=== PATIENT | male | born 1985 | race Caucasian/White ===

== ENCOUNTER 2020-09-16 10:19 | Emergency (ER) | payer OTHER, SELFPAY ==
--- NOTE | ~2020-09-16 | CT_ITS ---
EXAMINATION: CT abdomen pelvis w con DATE: 09/16/2020 11:50 INDICATION: Abdominal pain TECHNIQUE: Computed tomography (CT) of the abdomen and pelvis was performed with 100 mL Omnipaque-350 intravenous contrast. Automated exposure control and iterative reconstruction technique were employe d. The dose-length product was 594.59 mGy-cm. COMPARISON: None FINDINGS: There are scattered nodular and patchy groundglass opacities in the bilateral lower lobes consistent with pneumonia. Heart size is normal. No pericardial or pleural effusion. Liver, gallbladder, spleen, pancreas, bilateral adrenal glands are normal. Bilateral nonobstructing nephrolithiasis with [address] one at a lower pole calyx of the right kidney and with 2 mm and 3 mm stones in the upper pole of the left kidney. There are few scattered colonic diverticula without adjacent inflammatory change to sugg est diverticulitis. Small bowel and appendix are normal. Bladder is normal. No free intraperitoneal g as or fluid. No pathologically enlarged abdominal or pelvic lymphadenopathy. Tiny fat-containing umbi lical hernia. Minimal thoracolumbar levocurvature with mild lower lumbar spondylosis. IMPRESSION: 1. Multifocal pneumonia at the bilateral lung bases. 2. Bilateral nonobstructing nephrolithiasis. Reviewed, dictated and finalized at location A. OBGYN
--- NOTE | ~2020-09-16 | XR_ITS ---
EXAMINATION: XR chest 1V portable DATE: 09/16/2020 12:28 INDICATION: Cough. TECHNIQUE: A single frontal view of the chest was obtained. COMPARISON: CT abdomen and pelvis 09/16/2020 FINDINGS: There are mild patchy airspace opacities in all lung zones bilaterally, consistent with pne umonia. No pleural effusion or pneumothorax. The heart size is normal. IMPRESSION: 1. Multifocal pneumonia. Reviewed, dictated and finalized at location B. 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 Multifocal pneumonia.
[2020-09-16 10:28] VITALS: BP 108/62; PULSE 71; RESP 17; TEMP 36.1; O2SAT 98
[2020-09-16 10:51] LABS: Basophils Percent Auto 0.2 % (0.2-1.2); Hematocrit 43.4 % (42.0-52.0); Hemoglobin 15.1 g/dL (14.0-18.0); Immature Granulocyte Absolute 0.02 K/mm3 (0.00-0.031); Immature Granulocyte Percent A 0.4 % (0-0.5); Lymphocytes Absolute Auto 1.17 K/mm3 (0.9-3.2); Lymphocytes Percent Auto 23.4 % (18.3-44.2); Mean Corpuscular HGB Conc 34.8 g/dl (32-36); Mean Corpuscular Hemoglobin 31.4 pg (26-34); Mean Corpuscular Volume 90.2 fl (80-100); Mean Platelet Volume 9.4 fl (7.4-10.4); Monocytes Absolute Auto 0.4 K/mm3 (0.1-0.6); Monocytes Percent Auto 7.4 % (2.6-8.5); Neutrophils Absolute Auto 3.4 K/mm3 (1.3-6.7); Neutrophils Percent Auto 68.6 % (45.5-73.1); Platelet Count Result 245 k/mm3 (150-375); Red Blood Count 4.81 M/mm3 (4.6-6.20); Red Cell Distribution Width 11.4 % (11.5-14.5)
[2020-09-16 11:09] LABS: Anion Gap 9 mmol/L (8-16); Blood Urea Nitrogen 14 mg/dL (9-20); Calcium 9.4 mg/dL (8.4-10.2); Carbon Dioxide 31 mmol/L (22-30); Chloride 101 mmol/L (98-107); Estimated CRCL calculation 162 ml/min; Estimated Glomerular Filt Rate > 60; Glucose 122 mg/dL (75-110); Sodium 141 mmol/L (137-145)
[2020-09-16 11:10] LABS: Add Urine Microscopic? YES; Appearance Urine Clear (Clear); Bacteria Urine Trace /hpf; Bilirubin Urine Negative (Negative); Blood Urine 1+ (Negative); Color Urine Yellow (Yellow); Glucose Urine UA Negative (Negative); Ketones Urine Negative (Negative); Leukocyte Esterase Ur Negative LEU/UL (Negative); Mucus Urine Heavy /lpf; Nitrate Urine Negative (Negative); Protein Urine 1+ mg/dL (Negative); Specific Grav Ur 1.025 (1.001-1.035); Squamous Epithelial Cell Urine Rare /hpf (Few); Urobilinogen Urine Negative mg/dL (<2.0); WBC Urine 0-3 /hpf
[2020-09-16 11:25] VITALS: BP 121/94; PULSE 64; RESP 20; O2SAT 97
[2020-09-16 11:46] LABS: Albumin Level 4.5 g/dL (3.5-5.1)
[2020-09-16 11:48] LABS: Alanine Aminotransferase 34 U/L (4-50); Alkaline Phosphatase 91 U/L (38-126); Aspartate Amino Transferase 43 U/L (17-59); Bilirubin,Total 0.8 mg/dL (0.2-1.3); Lipase 59 U/L (23-300)
[2020-09-16] MEDS: SODIUM CHLORIDE 0.9% IV 1,000 ML 999 ML IV CONT (11:49)
[2020-09-16] MEDS: ONDANSETRON INJ 4 MG/2 ML VIAL IV PUSH (11:49)
[2020-09-16 13:05] VITALS: BP 103/68; PULSE 73; RESP 20; O2SAT 99
--- NOTE | 2020-09-16 13:23 | ED.GENADULT ---
HPI - General Adult General Chief complaint: Abdominal Pain Stated complaint: sent from med exp/kidney stone Source: RN notes reviewed History of Present Illness HPI narrative: Patient presents emergency department from home for nausea and vomiting. Patient states that symptoms had begun approximately 4 days ago he had had some lower abdominal pain and gone to the urgent care at that time x-rays been taken and there been a question whether the patient had kidney stones. States he began to have nausea vomiting today and return and they been instructed to come to the ED for further evaluation. He states he has had 2 - rapid Covid swabs in this past week. He denies any fevers or chills chest pain shortness of breath diarrhea or any other symptoms Related Data Allergies Allergy/AdvReac Type Severity Reaction Status Date / Time tetracycline Allergy Intermediate Vomiting Verified 09/16/20 11:03 cefaclor Allergy Mild Hives / Verified 09/16/20 11:03 Red Face Review of Systems Review of Systems: Narrative: Gen.: Denies fevers or chills ENT: Denies congestion Respiratory: Denies shortness of breath reports mild nonproductive cough CV: Denies chest pain or palpitations GI: See HPI denies burning, urgency, frequency or hematuria Musculoskeletal: Denies back pain or muscle pain Neuro: Denies numbness, tingling, weakness or focal weakness Skin: Denies rash Except as documented, all other systems reviewed and negative PMFSH Past Medical History Medical History (Updated 09/16/20 @ 13:26 by Juan Nagel DO) Patient denies significant medical history Social History Social History (Updated 09/16/20 @ 13:24 by Juan Nagel DO) Smoking status: Never smoker Gender identity (if verbalized by the patient): Male Exam Narrative: Exam Narrative: APPEARANCE: No acute distress, nontoxic, resting in bed HEENT: Normocephalic, atraumatic, OMM RESPIRATORY: No respiratory distress, clear to auscultation bilaterally with no rhonchi wheezing or rales CARDIOVASCULAR: RRR s murmur ABDOMINAL: Soft, nondistended, tender palpation right lower quadrant left lower quadrant no tenderness right upper quadrant left upper quadrant no rebound or guarding MUSCULOSKELETAl: Moves all extremities. No clubbing, cyanosis or edema. NEURO: Awake and alert. Following commands, speech normal, no focal deficits SKIN:: Warm, dry. Normal Color PSYCHIATRIC: Normal affect/mood Course Course Emergency Course: Patient's abdomen is soft without significant pain or signs of surgical abdomen on serial exams. Lab and x-ray evaluations are reviewed and patient is felt to be a reasonable candidate for outpatient management. Patient was instructed as to limitations of x-ray and laboratory evaluation and encouraged to return to ED or primary physician for repeat exam in 12 hours if continued or worsening pain Vital Signs Vital signs: Vital Signs Temperature 96.9 F L 09/16/20 10:28 Pulse Rate 71 09/16/20 10:28 Respiratory Rate 17 09/16/20 10:28 Blood Pressure 108/62 09/16/20 10:28 Pulse Oximetry 98 09/16/20 10:28 Temperature 96.9 F L 09/16/20 10:28 Pulse Rate 73 09/16/20 13:05 Respiratory Rate 20 09/16/20 13:05 Blood Pressure 103/68 09/16/20 13:05 Pulse Oximetry 99 09/16/20 13:05 Medical Decision Making MDM Narrative Medical decision making narrative: Patient presents for nausea vomiting and abdominal pain. On exam today he is shown to have pneumonia on his CT scan of his abdomen pelvis currently with Covid pandemic suspect Covid will obtain Covid PCR swab in ED and discharged patient is he has stable vital signs with follow-up as an outpatient Vital Signs Vital Signs: Vital Signs Temperature 96.9 F L 09/16/20 10:28 Pulse Rate 71 09/16/20 10:28 Respiratory Rate 17 09/16/20 10:28 Blood Pressure 108/62 09/16/20 10:28 Pulse Oximetry 98 09/16/20 10:28 Temperature 96.9 F L 09/16/20 10:28 Pulse Rate 73
[2020-09-16 13:26] VITALS: BP 103/68; PULSE 66; RESP 20; O2SAT 98
[2020-09-16 23:21] LABS: SARS-CoV-2 RNA PCR Positive
== END 2020-09-16 13:39 | disposition home or self-care (01) ==
PROVIDERS: Emergency Provider Emergency Medicine
DX: U07.1 COVID-19 (principal); J12.89 Other viral pneumonia; N20.0 Calculus of kidney
CPT/HCPCS: 36415; 71045; 74177; 80048; 80076; 81001; 83690; 85025; 87635; 96365; 96375; 99284; C9803; J0131; J0456; J2405; J7030; Q9967; U0003

== ENCOUNTER 2020-10-20 23:57 | Observation (INO) | payer OTHER, SELFPAY ==
--- NOTE | ~2020-10-20 | CT_ITS ---
EXAMINATION: CT abdomen pelvis wo con DATE: 10/21/2020 00:24 INDICATION: Right flank pain TECHNIQUE: Computed tomography (CT) of the abdomen and pelvis was performed without intravenous contr ast. The dose-length product (DLP) was 709.32 mGy-cm. Automated exposure control and iterative recons truction technique were employed. COMPARISON: 09/16/2020 FINDINGS: Previously described patchy groundglass and nodular opacities of the visualized lung bases have improved. The heart size is normal. There is a small sliding hiatal hernia. The liver, spleen, p ancreas, gallbladder, and adrenal glands are normal. There is a 6 mm stone in the right proximal uret er which causes mild right hydronephrosis. There are two nonobstructing 5 mm stones in the left mid k idney and upper pole. No stones are identified in the left ureter or the bladder. No pathologically e nlarged abdominal or pelvic lymph nodes are identified. There is no free intraperitoneal gas or evide nce of bowel obstruction. The appendix is normal. A fat-containing umbilical hernia is noted. IMPRESSION: 1. 6 mm stone in the right proximal ureter causing mild hydronephrosis. 2. Nonobstructing left nephrolithiasis. 3. Resolving pneumonia of the lung bases. Reviewed, dictated and finalized at location A. EL LATHE OPERATOR
--- NOTE | ~2020-10-20 | XR_ITS ---
EXAMINATION: XR abdomen/kub 1V INDICATION: Right flank pain TECHNIQUE: Supine view of the abdomen is obtained. COMPARISON: CT from today FINDINGS: A 6 mm stone projects over the right L3 transverse process at the expected location of the right proximal ureter. Bowel contents project over the left kidney obscuring visualization of known l eft nephrolithiasis. The bowel gas pattern is normal. Pelvic phleboliths are noted. IMPRESSION: 1. 6 mm stone of the right proximal ureter. Reviewed, dictated and finalized at location A. 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
[2020-10-21] VITALS (13 sets, daily range): BP systolic 113–140; BP diastolic 75–100; PULSE 65–100; RESP 10–20; TEMP 35.9–37.2; O2SAT 94–100; BMI 31.6
--- NOTE | 2020-10-21 00:02 | ED.ABDPAIN ---
HPI - Abdominal Pain General Chief Complaint: Abdominal Pain Stated Complaint: abd pain/vomiting blood Time Seen by Provider: 10/21/20 00:02 Source: patient Mode of arrival: ambulatory Limitations: no limitations History of Present Illness HPI narrative: Patient is a 35-year-old male who presents complaining of sudden onset lower abdominal pain with nausea and vomiting starting approximately 1 hour ago. Patient reports taking Tylenol, which he reports vomiting. Patient reports blood in urine at this time, denies dysuria or frequency. He denies other complaints at this time. MD elicited complaint: abdominal pain Related Data Allergies Allergy/AdvReac Type Severity Reaction Status Date / Time tetracycline Allergy Intermediate Vomiting Verified 10/21/20 02:28 cefaclor Allergy Mild Hives / Verified 10/21/20 02:28 Red Face lactose AdvReac Intermediate Diarrhea Verified 10/21/20 10:31 Review of Systems Review of Systems: Narrative: CONSTITUTIONAL: Denies fever, chills, or sweats. EYES: Denies visual changes, redness, or discharge. ENT: Denies rhinorrhea, congestion, sore throat, or otalgia. CARDIOVASCULAR: Denies chest pain, palpitations, or edema. RESPIRATORY: Denies cough or dyspnea. GASTROINTESTINAL: Reports abdominal pain, nausea and vomiting GENITOURINARY: Reports hematuria. SKIN: Denies rash or itching. MUSCULOSKELETAL: Denies back pain, joint pain, or myalgia. NEUROLOGIC: Denies headache, numbness, dizziness, or weakness. PSYCHIATRIC: Denies anxiety or depression. [facility] Past Medical History Medical History (Updated 10/21/20 @ 10:43 by Raciel Grissom MD) Obesity Surgical History Surgical History H/O sinus surgery Family History Family History Father Chronic obstructive pulmonary disease Other No significant family history Social History Social History Smoking status: Never smoker Alcohol intake: never Substance use: never Gender identity (if verbalized by the patient): Male Spiritual care concerns: No Comments At the time of signature, I have reviewed and agree with nursing past medical, surgical, social, and family history unless otherwise noted. Please see nursing chart for further information. There is no relevant family history pertinent to the presenting complaint. Exam Narrative: Exam Narrative: GENERAL: Well-appearing, well-nourished, and in no acute distress. HEAD: Normocephalic, atraumatic. EYES: No redness or drainage. ENT: Mucous membranes pink and moist. CHEST: No respiratory distress. HEART: Regular rate and rhythm. GI: Soft, nontender without rebound, or guarding. No distention. EXTREMITIES: Normal range of motion. No edema. SKIN: Warm, dry, no rash. NEURO: No focal deficits. Alert and oriented x3. Gait steady. PSYCH: Normal affect. No signs of depression or anxiety. Course Vital Signs Vital signs: Vital Signs Temperature 36.6 C 10/21/20 00:01 Pulse Rate 69 10/21/20 00:01 Respiratory Rate 16 10/21/20 00:01 Blood Pressure 140/100 H 10/21/20 00:01 Pulse Oximetry 100 10/21/20 00:01 Temperature 35.9 C L 10/21/20 14:00 Pulse Rate 84 10/21/20 14:00 Respiratory Rate 16 10/21/20 14:00 Blood Pressure 125/82 10/21/20 14:00 Pulse Oximetry 96 10/21/20 14:00 Reviewed. Patient has been instructed to follow-up with his PCP regarding his blood pressure. MDM - Abdominal Pain MDM Narrative Medical decision making narrative: Patient has a 6 mm kidney calculus within the proximal right ureter which causes mild hydronephrosis and additional nonobstructing calculi within the left kidney. Patient is to be admitted for pain control at this time. Discussed plan of care with Dr. Hurst. Discussed with Dr. Orta who agrees to admit patient. Differential Diagnosis Differential
[2020-10-21 00:11] LABS: Basophils Absolute Auto 0.1 K/mm3 (0.0-0.1); Basophils Percent Auto 0.6 % (0.2-1.2); Eosinophils Absolute Auto 0.2 K/mm3 (0-0.3); Eosinophils Percent Auto 1.6 % (0-4.4); Hematocrit 43.3 % (42.0-52.0); Immature Granulocyte Absolute 0.05 K/mm3 (0.00-0.031); Immature Granulocyte Percent A 0.5 % (0-0.5); Lymphocytes Absolute Auto 3.11 K/mm3 (0.9-3.2); Lymphocytes Percent Auto 32.5 % (18.3-44.2); Mean Corpuscular HGB Conc 34.6 g/dl (32-36); Mean Corpuscular Hemoglobin 31.8 pg (26-34); Mean Corpuscular Volume 91.7 fl (80-100); Mean Platelet Volume 9.3 fl (7.4-10.4); Monocytes Absolute Auto 0.8 K/mm3 (0.1-0.6); Monocytes Percent Auto 8.1 % (2.6-8.5); Neutrophils Absolute Auto 5.4 K/mm3 (1.3-6.7); Neutrophils Percent Auto 56.7 % (45.5-73.1); Platelet Count Result 261 k/mm3 (150-375); Red Blood Count 4.72 M/mm3 (4.6-6.20); Red Cell Distribution Width 12.4 % (11.5-14.5); White Blood Count 9.6 K/mm3 (4.5-10.0)
[2020-10-21] MEDS: KETOROLAC 30 MG/ML VIAL (*BKC) IV PUSH (00:20)
[2020-10-21] MEDS: ONDANSETRON INJ 4 MG/2 ML VIAL IV PUSH (00:21)
[2020-10-21 00:22] LABS: Alanine Aminotransferase 35 U/L (4-50); Albumin Level 4.5 g/dL (3.5-5.1); Alkaline Phosphatase 81 U/L (38-126); Anion Gap 6 mmol/L (8-16); Aspartate Amino Transferase 38 U/L (17-59); Bilirubin,Total 0.5 mg/dL (0.2-1.3); Blood Urea Nitrogen 19 mg/dL (9-20); Calcium 9.6 mg/dL (8.4-10.2); Carbon Dioxide 31 mmol/L (22-30); Chloride 101 mmol/L (98-107); Estimated CRCL calculation 94 ml/min; Estimated Glomerular Filt Rate > 60; Glucose 145 mg/dL (75-110); Lipase 61 U/L (23-300); Potassium 3.9 mmol/L (3.4-5.0); Sodium 138 mmol/L (137-145)
[2020-10-21] MEDS: SODIUM CHLORIDE 0.9% IV 1,000 ML 999 ML IV CONT (00:22)
[2020-10-21] MEDS: MORPHINE SULFATE (*CRX) 2 MG/ML INJ IV PUSH (00:44)
[2020-10-21 02:00] LABS: Add Urine Microscopic? YES; Appearance Urine Clear (Clear); Bilirubin Urine Negative (Negative); Blood Urine 2+ (Negative); Color Urine Yellow (Yellow); Glucose Urine UA Negative (Negative); Ketones Urine Negative (Negative); Leukocyte Esterase Ur Negative LEU/UL (Negative); Mucus Urine Rare /lpf; Nitrate Urine Negative (Negative); Protein Urine Negative (Negative); Specific Grav Ur 1.025 (1.001-1.035); Urobilinogen Urine Negative mg/dL (<2.0); WBC Urine 0-3 /hpf
--- NOTE | 2020-10-21 02:08 | ADMGEN ---
This patient, Young Lara, was admitted to Medical Room 261-01. Patient/family oriented to hospital policies and general routines including ID bracelet, bed and alarms, visiting hours, pain management, procedures, bathroom and other care routines, personal items, smoking policy, room service/diet, and visiting hours. Information on how to activate the Rapid Response Team has been discussed. Patient/Family are encouraged to report perceived risks to care and to ask questions if they do not understand what they are told or what they should do.
[2020-10-21] MEDS: SODIUM CHLORIDE 0.9% IV 1,000 ML 125 ML IV CONT (02:22)
[2020-10-21] MEDS: MORPHINE SULFATE (*CRX) 4 MG/ML INJ IV PUSH ×2 (02:51→08:46)
--- NOTE | 2020-10-21 07:51 | PM.IMHP ---
H&P: HPI History of Present Illness Date/Time: 10/21/20 07:51 Chief Complaint: Right ureteral stone Narrative: Young Lara is a 35 year old male with no prior history of nephrolithiasis. He had acute onset of right-sided flank pain last night at 11:30 a.m.. He noted some nausea and vomiting. He also noted blood in the urine. There is no dysuria. There is no fevers or chills. There is no symptoms of urinary tract infection. He did take a aspirin when the pain started but probably through without in less than a minute. He is on no blood thinners. He would like intervention on the stone. We discussed ureteroscopy and lithotripsy. The stone is visible on KUB. We will proceed with lithotripsy. Review of Systems Review of Systems: All systems reviewed & are unremarkable except as noted in HPI and below PMFSH Past Medical History Medical History Patient denies significant medical history Surgical History Surgical History History of ear, nose, and throat (ENT) surgery Family History Family History (Updated 10/21/20 @ 02:10 by Nelly Sullivan RN) Father Chronic obstructive pulmonary disease Other No significant family history Social History Social History (Updated 09/16/20 @ 13:24 by Juan Nagel DO) Smoking status: Never smoker Alcohol intake: never Substance use: never Gender identity (if verbalized by the patient): Male Spiritual care concerns: No Meds Home Medications and Allergies Home Medications Medication Instructions Recorded Confirmed Type No Home Medications 10/21/20 10/21/20 History Allergies Allergy/AdvReac Type Severity Reaction Status Date / Time tetracycline Allergy Intermediate Vomiting Verified 10/21/20 02:28 cefaclor Allergy Mild Hives / Verified 10/21/20 02:28 Red Face Vital Signs Vital Signs - 24 hr 10/21/20 00:01 10/21/20 01:30 10/21/20 01:49 Temperature 97.8 F 98.9 F Pulse Rate 69 65 70 Respiratory Rate 16 16 16 Blood Pressure 140/100 H 128/94 H 125/88 Pulse Oximetry 100 98 99 10/21/20 02:26 10/21/20 06:00 Temperature 97.1 F L 97.9 F Pulse Rate 73 84 Respiratory Rate 16 16 Blood Pressure 130/82 120/81 Pulse Oximetry 97 94 Exam Const: General: cooperative and healthy appearing HENMT: Head: normal to inspection Eyes: General: appearance normal, both eyes and all related structures Neck: Neck: normal visual inspection Resp: Effort & Inspection: normal respiratory effort and able to speak in complete sentences GI: Inspection: normal to inspection Skin: General skin exam: normal color and no rashes or lesions noted Neuro: General: oriented to person and patient oriented x3 Extrem: General: normal to inspection and full ROM Psych: Appearance: grossly normal and well kempt Mental Status: mental status grossly normal H&P: Results Labs Labs: Short CBC 10/21/20 Range/Units 00:05 WBC 9.6 (4.5-10.0) K/mm3 Hgb 15.0 (14.0-18.0) g/dL Hct 43.3 (42.0-52.0) % Plt Count 261 (150-375) k/mm3 BMP 10/21/20 00:05 Sodium 138 Potassium 3.9 Chloride 101 Carbon Dioxide 31 H BUN 19 Creatinine 1.10 Glucose 145 H Calcium 9.6 Liver Function 10/21/20 Range/Units 00:05 Total Bilirubin 0.5 (0.2-1.3) mg/dL AST 38 (17-59) U/L ALT 35 (4-50) U/L Alkaline Phosphatase 81 (38-126) U/L Albumin 4.5 (3.5-5.1) g/dL Urine 10/21/20 Range/Units 01:52 Urine Color Yellow (Yellow) Urine Appearance Clear (Clear) Urine pH 6.0 (5.0-9.0) Ur Specific [place] 1.025 (1.001-1.035) Urine Protein Negative (Negative) mg/dL Urine Glucose (UA) Negative (Negative) mg/dL Assessment and Plan Assessment and plan (1) Calculus of proximal right ureter: Code(s): N20.1 - Calculus of ureter Status: Acute Assessment and Plan:
--- NOTE | 2020-10-21 10:05 | PC.NURSE ---
pt to surgery via stretcher
[2020-10-21] MEDS: LACTATED RINGERS 1,000 ML 30 ML IV CONT (10:15)
--- NOTE | 2020-10-21 10:26 | SUR.PREOP ---
dr altamirano waived pt/ptt for this procedure.ct done,kub not needed per dr altamirano.
--- NOTE | 2020-10-21 10:41 | WPDANESEPPF ---
Anes - Initial Pre Proc Eval Procedure: Operation Date: 10/21/20 12:45 Proposed Procedures p Right Extracorporeal Shock Wave Lithotripsy - Marlon Orta MD Date/Time: 10/21/20 10:41 Surgeon: Marlon Orta MD Pre Op Diagnosis: Kidney Calculi Patient Data Age: 35 Gender: M Height: 5 ft 9 in Weight: 97.1 kg Last Vital Signs Temp 36.6 C 10/21/20 06:00 Pulse 84 10/21/20 06:00 Resp 16 10/21/20 06:00 BP 120/81 10/21/20 06:00 Pulse Ox 94 10/21/20 06:00 Allergies Allergy/AdvReac Type Severity Reaction Status Date / Time tetracycline Allergy Intermediate Vomiting Verified 10/21/20 02:28 cefaclor Allergy Mild Hives / Verified 10/21/20 02:28 Red [place] lactose AdvReac Intermediate Diarrhea Verified 10/21/20 10:31 Home Medications Medication Instructions Recorded Confirmed Type No Home Medications 10/21/20 10/21/20 History Laboratory Tests 10/21/20 10/21/20 10/21/20 00:05 00:05 01:52 WBC 9.6 K/mm3 K/mm3 (4.5-10.0) RBC 4.72 M/mm3 M/mm3 (4.6-6.20) Hgb 15.0 g/dL g/dL (14.0-18.0) Hct 43.3 % % (42.0-52.0) MCV 91.7 fl fl (80-100) MCH 31.8 pg pg (26-34) MCHC 34.6 g/dl g/dl (32-36) RDW 12.4 % % (11.5-14.5) Plt Count 261 k/mm3 k/mm3 (150-375) MPV 9.3 fl fl (7.4-10.4) Immature Gran % (Auto) 0.5 % % (0-0.5) Neut % (Auto) 56.7 % % (45.5-73.1) Lymph % (Auto) 32.5 % % (18.3-44.2) [place] % (Auto) 8.1 % % (2.6-8.5) Eos % (Auto) 1.6 % % (0-4.4) Baso % (Auto) 0.6 % % (0.2-1.2) Lymph # (Auto) 3.11 K/mm3 K/mm3 (0.9-3.2) [place] # (Auto) 0.8 K/mm3 H K/mm3 (0.1-0.6) Eos # (Auto) 0.2 K/mm3 K/mm3 (0-0.3) Baso # (Auto) 0.1 K/mm3 K/mm3 (0.0-0.1) Abs Immat Gran (auto) 0.05 K/mm3 H K/mm3 (0.00-0.031) Absolute Neuts (auto) 5.4 K/mm3 K/mm3 (1.3-6.7) Absolute Nucleated RBC 0.0 K/mm3 K/mm3 (0.0-0.012) Nucleated RBC % 0.0 % % (0.0-0.2) Sodium 138 mmol/L mmol/L (137-145) Potassium 3.9 mmol/L mmol/L (3.4-5.0) Chloride 101 mmol/L mmol/L (98-107) Carbon Dioxide 31 mmol/L H mmol/L (22-30) Anion Gap 6 mmol/L L mmol/L (8-16) BUN 19 mg/dL mg/dL (9-20) Creatinine 1.10 mg/dL mg/dL (0.7-1.3) Estim Creat Clear Calc 94 ml/min ml/min Estimated GFR > 60 (59 - ) Glucose 145 mg/dL H mg/dL (75-110) Calcium 9.6 mg/dL mg/dL (8.4-10.2) Total Bilirubin 0.5 mg/dL mg/dL (0.2-1.3) AST 38 U/L U/L (17-59) ALT 35 U/L U/L (4-50) Alkaline Phosphatase 81 U/L U/L (38-126) Total Protein 8.0 g/dL g/dL (6.3-8.2) Albumin 4.5 g/dL g/dL (3.5-5.1) Lipase 61 U/L U/L (23-300) Urine Color Yellow (Yellow) Urine Appearance Clear (Clear) Urine pH 6.0 (5.0-9.0) Ur Specific [place] 1.025 (1.001-1.035) Urine Protein Negative mg/dL mg/dL (Negative) Urine Glucose (UA) Negative mg/dL mg/dL (Negative) Urine Ketones Negative mg/dL mg/dL (Negative) Ur Blood (Man) 2+ H (Negative) Urine Nitrate Negative (Negative) Urine Bilirubin Negative (Negative) Urine Urobilinogen Negative mg/dL mg/dL (<2.0) Leukocyte Esterase Rfl Negative COREY/UL COREY/UL (Negative) Urine RBC 11-20 /hpf H /hpf (0-2) Urine WBC 0-3 /hpf /hpf Urine Mucus Rare /lpf /lpf Patient hx anesthesia problems: none Family hx anesthesia problems: none [facility] Past Medical History Medical History (Updated 10/21/20 @ 10:43 by Raciel Grissom MD) Obesity Surgical History Surgical History (Reviewed 10/21/20 @ 10:43 by Raciel Garcia
--- NOTE | 2020-10-21 11:29 | WPDHPUPDATE1 ---
History and Physical Update Update Date/Time: 10/21/20 11:29 History and Physical has been reviewed, including an updated exam of the patient. There are NO changes in the patient's condition. Risks, benefits, and alternatives have been discussed and questions answered. Patient agrees to proceed with procedure.
--- NOTE | 2020-10-21 12:13 | PM.PROC ---
Procedure Note - Detailed Date of procedure: 10/21/20 Pre-op diagnosis: Kidney Calculi Calculus of ureter Post-op diagnosis: same Procedure performed: Right extracorporeal shockwave lithotripsy Description of procedure: He was correctly identified. Informed consent was obtained. From the operating room. He was given general anesthesia. All pressure points were padded. We targeted the stone with fluoroscopy. It could be seen at the proximal ureter. We delivered lithotripsy. Two thousand five hundred shocks. Power level up to 4. There appeared to be fragmentation of the stone. At the end of the procedure he was awakened and transferred to the PACU in stable condition. Implants: None Anesthesia: GLMA Surgeon: Marlon Orta MD Estimated blood loss (mL): 0 Drains: No Pathology: none sent Complications: No immediate complications Condition: stable Disposition: PACU
--- NOTE | 2020-10-21 12:14 | PM.DS ---
DS: Admitting Diagnosis Admitting Diagnosis Admitting Diagnosis: Calculus of ureter DS: Discharge Diagnosis Discharge Diagnosis (1) Calculus of proximal right ureter: Code(s): N20.1 - Calculus of ureter Status: Acute Assessment and Plan: He was admitted the evening of October 20, 2020. He was found to have a proximal ureteral stone on the right. He was watched overnight and given IV pain medications. The next day he was taken the operating room for a right extracorporeal shockwave lithotripsy. He tolerated this well. He was discharged home in stable condition. DS: Summary Hospital Course Reason for hospitalization: Ureteral stone Hospital Course: He was admitted the evening of October 20, 2020. He was found to have a proximal ureteral stone on the right. He was watched overnight and given IV pain medications. The next day he was taken the operating room for a right extracorporeal shockwave lithotripsy. He tolerated this well. He was discharged home in stable condition. Time spent discussing smoking cessation with patient: more than 10 minutes Status at Discharge Functional status at discharge: independent ambulation Time Spent with Patient Time attestation: Total time spent providing and/or coordinating discharge services: 15 minutes DS: Data Data Completed and Pending Labs on day of discharge: Labs from last 24 hours 10/21/20 10/21/20 10/21/20 01:52 00:05 00:05 WBC 9.6 RBC 4.72 Hgb 15.0 Hct 43.3 MCV 91.7 MCH 31.8 MCHC 34.6 RDW 12.4 Plt Count 261 MPV 9.3 Immature Gran % (Auto) 0.5 Neut % (Auto) 56.7 Lymph % (Auto) 32.5 [place] % (Auto) 8.1 Eos % (Auto) 1.6 Baso % (Auto) 0.6 Lymph # (Auto) 3.11 [place] # (Auto) 0.8 H Eos # (Auto) 0.2 Baso # (Auto) 0.1 Abs Immat Gran (auto) 0.05 H Absolute Neuts (auto) 5.4 Absolute Nucleated RBC 0.0 Nucleated RBC % 0.0 Sodium 138 Potassium 3.9 Chloride 101 Carbon Dioxide 31 H Anion Gap 6 L BUN 19 Creatinine 1.10 Estim Creat Clear Calc 94 Estimated GFR > 60 Glucose 145 H Calcium 9.6 Total Bilirubin 0.5 AST 38 ALT 35 Alkaline Phosphatase 81 Total Protein 8.0 Albumin 4.5 Lipase 61 Urine Color Yellow Urine Appearance Clear Urine pH 6.0 Ur Specific [place] 1.025 Urine Protein Negative Urine Glucose (UA) Negative Urine Ketones Negative Ur Blood (Man) 2+ H Urine Nitrate Negative Urine Bilirubin Negative Urine Urobilinogen Negative Leukocyte Esterase Rfl Negative Urine RBC 11-20 H Urine WBC 0-3 Urine Mucus Rare Discharge Plan Discharge Attending physician on discharge: Marlon Orta Consulting providers: Sanjay Paulino Discharging Clinician: Marlon Orta Anticipated Discharge Date/Time: 10/21/20 14:00 Patient Disposition: Home, Self-Care Activity: unlimited Diet: as tolerated Discharge Instructions: Strain urine for stones Patient Instructions: Antibiotic Form, Kidney Stones (DC) Stand Alone Forms: General Discharge Information Follow-up/Referrals: Marlon Orta MD [Physician] - (2-4 weeks [phone]) Discharge Medications: New hydrocodone-acetaminophen [[place]] 5-325 mg tablet 1 tablet PO Q4H PRN (Reason: pain) Qty: 30 RF: 0 tamsulosin [Flomax] 0.4 mg capsule 0.4 mg PO HS Qty: 14 RF: 0 No Action No Home Medications RF: 0 Date of admission: 10/21/20 01:39 Primary Care Provider: PHYSICIAN,HOTEL SERVICES SALES REPRESENTATIVE Admitting Provider: Marlon Orta Attending physician on admission: Marlon Orta Condition: Stable
--- NOTE | 2020-10-21 13:10 | PC.NURSE ---
pt returned from surgery, resting comfortably
== END 2020-10-21 16:40 | disposition home or self-care (01) ==
LOC: ANHED 10-21 01:01 → ANH2MED 10-21 01:44
PROVIDERS: Emergency Medicine; Admitting Provider Urology; Emergency Provider Nurse Practitioner; Visit Provider Urology
PROC: (CPT 50590; principal; 2020-10-21 12:45)
DX: N20.1 Calculus of ureter (principal)
CPT/HCPCS: 50590; 36415; 74018; 74176; 80053; 81001; 83690; 85025; 96361; 96374; 96375; 96376; 99285; G0378; J1885; J2250; J2270; J2405; J2704; J3010; J7030; J7120

== ENCOUNTER 2022-12-04 23:38 | Emergency (ER) | payer OTHER, SELFPAY ==
--- NOTE | ~2022-12-04 | CT_ITS ---
Non-contrast CT scan of the Abdomen and Pelvis Clinical indication: Left flank pain Technique: 2.5 mm axial scans were obtained through the abdomen and pelvis without intravenous or or al contrast. Dose reduction technique was used on this scan by utilizing automated exposure control a nd iterative reconstruction technique. The dose-length product (DLP) was 355.87 mGy-cm. COMPARISON: 10/21/2020 Findings: Images through the lung bases reveal no abnormalities. There is 6 x 5 mm mid left ureteral stone (axial image 147), with Hounsfield units in the range of 12 00. There is associated mild left hydroureteronephrosis to the level of the stone. Additional punctat e bilateral nonobstructing renal stones are present. No right ureteral stone or right hydronephrosis. The liver, spleen, pancreas, gallbladder, and adrenals appear normal. There is no aortic aneurysm. There is no evidence of bowel obstruction. Images through the pelvis were performed. There is no evidence of ascites or lymphadenopathy. Urinary bladder unremarkable. Prostate gland and seminal vesicles are unremarkable. Impression: 6 x 5 mm mid left ureteral stone with mild left hydroureteronephrosis, as detailed above. Additional small bilateral nonobstructing renal stones. Reviewed, dictated and finalized at location . 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 Additional small bilateral nonobstructing renal stones.
--- NOTE | ~2022-12-04 | XR_ITS ---
Supine and upright views of the abdomen Clinical history: Flank pain, hematuria COMPARISON: 10/21/2020 Findings: Bowel gas pattern is nonspecific. No evidence for obstruction or free air. No abnormal mass lesion or calcification is seen. Osseous structures are intact. Impression: No significant abnormality is seen. 6 x 5 mm mid left ureteral stone seen on CT scan earlier today is not readily visible on plain radiograph. Punctate bilateral renal stones also are not clearly visibl e. Reviewed, dictated and finalized at [facility]. 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 6 x 5 mm mid left ureteral stone seen on CT scan earlier today is not readily visible on plain radiograph. Punctate bilate ral renal stones also are not clearly visible.
[2022-12-04 23:40] VITALS: BP 160/93; PULSE 77; RESP 19; TEMP 36.6; O2SAT 100
[2022-12-05 00:19] LABS: Basophils Absolute Auto 0.1 K/mm3 (0.0-0.1); Basophils Percent Auto 0.9 % (0.2-1.2); Eosinophils Absolute Auto 0.2 K/mm3 (0-0.3); Eosinophils Percent Auto 3.1 % (0-4.4); Hemoglobin 15.2 g/dL (14.0-18.0); Immature Granulocyte Absolute 0.03 K/mm3 (0.00-0.031); Immature Granulocyte Percent A 0.4 % (0-0.5); Lymphocytes Absolute Auto 3.34 K/mm3 (0.9-3.2); Lymphocytes Percent Auto 44.4 % (18.3-44.2); Mean Corpuscular HGB Conc 33.8 g/dl (32-36); Mean Corpuscular Hemoglobin 31.5 pg (26-34); Mean Corpuscular Volume 93.4 fl (80-100); Mean Platelet Volume 9.7 fl (7.4-10.4); Monocytes Absolute Auto 0.8 K/mm3 (0.1-0.6); Monocytes Percent Auto 10.1 % (2.6-8.5); Neutrophils Absolute Auto 3.1 K/mm3 (1.3-6.7); Neutrophils Percent Auto 41.1 % (45.5-73.1); Platelet Count Result 259 k/mm3 (150-375); Red Blood Count 4.82 M/mm3 (4.6-6.20); Red Cell Distribution Width 12.1 % (11.5-14.5); White Blood Count 7.5 K/mm3 (4.5-10.0)
[2022-12-05 00:30] LABS: Alanine Aminotransferase 26 U/L (6-50); Albumin Level 4.8 g/dL (3.5-5.1); Alkaline Phosphatase 86 U/L (38-126); Anion Gap 5 mmol/L (8-16); Aspartate Amino Transferase 31 U/L (17-59); Bilirubin,Total 0.6 mg/dL (0.2-1.3); Blood Urea Nitrogen 16 mg/dL (9-20); Calcium 9.2 mg/dL (8.4-10.2); Carbon Dioxide 32 mmol/L (22-30); Chloride 100 mmol/L (98-107); Estimated CRCL calculation 88 ml/min; Estimated Glomerular Filt Rate > 60; Glucose 133 mg/dL (65-110); Lipase 66 U/L (23-300); Potassium 3.9 mmol/L (3.4-5.0); Sodium 137 mmol/L (137-145)
[2022-12-05 01:08] LABS: Appearance Urine Clear (Clear); Bacteria Urine None Seen /hpf; Bilirubin Urine Negative (Negative); Blood Urine 3+ (Negative); Color Urine Yellow (Yellow); Glucose Urine UA Negative (Negative); Ketones Urine Negative (Negative); Leukocyte Esterase Ur Negative LEU/UL (Negative); Nitrate Urine Negative (Negative); Non Pathogenic Casts 0-2; Protein Urine 1+ mg/dL (Negative); RBC Urine >100 /hpf (0-2); Specific Grav Ur 1.028 (1.001-1.035); Squamous Epithelial Cell Urine None seen /hpf (Few); WBC Urine 0-5 /hpf; pH Urine 5.5 (5.0-9.0)
[2022-12-05 01:15] LABS: Add Urine Microscopic? YES
[2022-12-05 02:17] VITALS: BP 165/104; PULSE 76; RESP 17; O2SAT 97
[2022-12-05] MEDS: SODIUM CHLORIDE 0.9% IV 1,000 ML 999 ML IV CONT (03:00)
[2022-12-05] MEDS: TAMSULOSIN HCL 0.4 MG CAPSULE PO (03:17)
--- NOTE | 2022-12-05 03:19 | ED.MALEGU ---
HPI - Male Genitourinary General Chief complaint: Urogenital-Male Stated complaint: flank pain Time Seen by Provider: 12/05/22 02:08 Source: patient and RN notes reviewed Mode of arrival: ambulatory Limitations: no limitations History of Present Illness HPI Narrative: This is a 37 year old male with history of kidney stones who presents for evaluation of left flank pain. He developed left flank pain on Saturday . His pain has been intermittent and it has now moved to his left groin. He reports his pain worsened today and he noticed small amount of blood in his urine tonight. He also developed nausea and vomiting today. He denies fever or chills. He rates his pain as 5/10. He reports being diagnosed with kidney stone 2 years ago that required lithotripsy. He has not taken any medication for his pain. Related Data Allergies Allergy/AdvReac Type Severity Reaction Status Date / Time tetracycline Allergy Intermediate Vomiting Verified 10/21/20 02:28 cefaclor Allergy Mild Hives / Verified 10/21/20 02:28 Red Face lactose AdvReac Intermediate Diarrhea Verified 10/21/20 10:31 Review of Systems Constitutional: Constitutional: Denies weakness Cardiovascular: Cardiovascular: Denies syncope, Denies rapid heart rate, Denies irregular heart rhythm, Denies leg edema and Denies dyspnea Respiratory: Respiratory: Denies chest congestion, Denies hemoptysis, Denies excessive phlegm production and Denies dyspnea Gastrointestinal: Gastrointestinal: Reports abdominal pain, Denies hematochezia, Denies diarrhea, Reports nausea and Reports vomiting Genitourinary: Genitourinary: Reports hematuria, Denies dysuria, Denies penile discharge and Denies testicular pain Musculoskeletal: Musculoskeletal: Reports back pain, Denies joint swelling, Denies loss of height and Denies muscle weakness Neurologic: Denies syncope, Denies focal weakness and Denies weakness [facility] Past Medical History Medical History (Updated 12/05/22 @ 04:08 by Rose Marie Bueno MD) Kidney stone Obesity Surgical History Surgical History H/O sinus surgery Family History Family History Father Chronic obstructive pulmonary disease Other No significant family history Social History Social History Smoking status: Never smoker Alcohol intake: never Substance use: never Gender identity (if verbalized by the patient): Male Spiritual care concerns: No Exam Const: General: no acute distress and alert Nutritional Appearance: well nourished HENMT: Head: normal to inspection Eyes: EOM: EOMs intact bilaterally Neck: Neck: normal visual inspection Chest: Chest palpation & inspection: normal inspection of the chest Resp: Effort & Inspection: normal respiratory effort Auscultation: clear to auscultation bilaterally Cardio: Rate: regular rate Rhythm: regular rhythm Heart sounds: no murmurs GI: GI Palp: Yes Soft to palpation, No Tenderness to palpation present (GI), No Guarding due to palpation present (GI) and No Rigid due to palpation Auscultation: normal bowel sounds : General: Yes no CVA tenderness Back/Spine/Pelvis: Back: no CVA tenderness Skin: General skin exam: normal color Rashes: no rashes Wounds: no wounds Neuro: General: patient oriented x3 and moves all extremities Cranial nerves: Yes CN's II-XII intact bilaterally Extrem: General: normal to inspection Psych: Mental Status: mental status grossly normal Affect: normal affect Attitude: cooperative Course Reevaluation(s) Reevaluation #1: Patient is resting comfortable.I have discussed CT results and discharge plan. He denies any other questions or concerns. Date: 12/05/22 Time: 04:07 Vital Signs Vital signs: Vital Signs Temperature 97.8 F 12/04/22 23:40 Pulse Rate 77 12/04/22 23:40 Respiratory Rat
[2022-12-05 04:25] VITALS: BP 138/91; PULSE 90; RESP 12; O2SAT 97
== END 2022-12-05 04:30 | disposition home or self-care (01) ==
PROVIDERS: Emergency Provider General Practice; PCP Family Medicine
DX: N20.0 Calculus of kidney (principal); N20.1 Calculus of ureter; Z87.442 Personal history of urinary calculi
CPT/HCPCS: 36415; 74018; 74176; 80053; 81001; 83690; 85025; 96360; 99284; A9270; J7030